=== PATIENT | female | born 1985 | race Caucasian/White ===

== ENCOUNTER 2020-09-09 10:50 | Outpatient (REF) | payer MEDICARE, MEDICAID, SELFPAY ==
--- NOTE | 2020-09-09 | US_ITS ---
EXAMINATION: US VENOUS ULTRASOUND WITH DOPPLER LOWER EXTREMITY, LEFT CLINICAL INFORMATION: Followup positive DVT. COMPARISON: Ultrasound venous Doppler left lower leg 04/24/2020 TECHNIQUE: Ultrasound of the deep veins is performed from the hip to the calf with compression sonography and color and pulse Doppler assessment. Spectral analysis with color-flow imaging is performed. FINDINGS: There is a partial clot seen in the left common femoral and popliteal vein with no compression consistent with a chronic clot. Also visualized is clot seen in the left proximal and mid superficial femoral vein with no compression. The greater saphenous vein has normal flow. The left posterior tibial and peroneal veins appear patent. There is no Johnson's cyst seen. IMPRESSION: Still positive left lower leg for DVT. There is a chronic partial clot seen in the left common femoral and popliteal vein with no compression. There is a clot seen in the proximal and mid superficial femoral vein. The greater saphenous, peroneal and posterior tibial veins are patent.
== END 2020-09-09 10:51 | disposition home or self-care (01) ==
LOC: HO.US 10:50
PROVIDERS: Visit Provider Internal Medicine Medical Oncology
DX: I82.402 Acute embolism and thrombosis of unspecified deep veins of left lower extremity (principal)
CPT/HCPCS: 93971

== ENCOUNTER → 2020-09-12 13:50 | Outpatient (BNV) | payer MEDICARE, MEDICAID, SELFPAY | PROVIDERS: PCP Internal Medicine; Visit Provider Internal Medicine Medical Oncology | DX: I82.402 Acute embolism and thrombosis of unspecified deep veins of left lower extremity (principal) | CPT/HCPCS: 99212; 99213; 99214 ==

== ENCOUNTER 2020-12-09 14:21 | Outpatient (REF) | payer MEDICARE, MEDICAID, SELFPAY ==
--- NOTE | 2020-12-09 14:27 | US_ITS ---
EXAMINATION: US VENOUS ULTRASOUND WITH DOPPLER LOWER EXTREMITY, LEFT CLINICAL INFORMATION: History DVT. Follow-up. COMPARISON: Left leg Doppler ultrasound exam 09/09/2020, 04/24/2020 TECHNIQUE: Ultrasound of the deep veins is performed from the hip to the calf with compression sonography and color and pulse Doppler assessment. Spectral analysis with color-flow imaging is performed. FINDINGS: There is chronic deep vein thrombosis. Partially occlusive thrombus remains in left common femoral vein and distal femoral vein and popliteal vein. There is occlusive thrombus in the proximal femoral and mid femoral vein. In the calf there is normal vascular flow present of the peritoneal, posterior tibial veins. The greater saphenous vein is patent. Compared to the prior study of 09/09/2020 there has not been substantial change. US/US venous duplex LE LT IMPRESSION: No change of the chronic thrombus in the left lower extremity when compared to prior study of 09/09/2020. Partial thrombus remains in the left common femoral vein, distal femoral vein and popliteal vein. Occlusive thrombus in the proximal femoral and mid femoral vein.
== END 2020-12-09 14:22 | disposition home or self-care (01) ==
LOC: HO.HMGCX 14:21
PROVIDERS: PCP Internal Medicine; Visit Provider Internal Medicine Medical Oncology
DX: Z86.718 Personal history of other venous thrombosis and embolism (principal); Z79.01 Long term (current) use of anticoagulants
CPT/HCPCS: 93971

== ENCOUNTER 2021-03-20 14:23 | Outpatient (REF) | payer MEDICARE, MEDICAID, SELFPAY ==
--- NOTE | ~2021-03-20 | US_ITS ---
EXAMINATION: US VENOUS ULTRASOUND WITH DOPPLER LOWER EXTREMITY, LEFT CLINICAL INFORMATION: Follow-up left lower extremity DVT. COMPARISON: Left lower extremity ultrasound 12/09/2020 TECHNIQUE: Ultrasound of the deep veins is performed from the hip to the calf with compression sonography and color and pulse Doppler assessment. Spectral analysis with color-flow imaging is performed. FINDINGS: There is chronic deep vein thrombosis. Partially occlusive thrombus in the common femoral vein, distal femoral vein, popliteal vein. Occlusive thrombus in the proximal and mid femoral vein. There is a normal vascular flow in the visualized posterior tibial and peroneal veins. Findings overall appear similar as compared to the prior study of 12/09/2020. US/US venous duplex LE LT IMPRESSION: No appreciable change in the the known chronic thrombosis in the left lower extremity. Partially occlusive thrombus in the common femoral vein, femoral vein and popliteal vein. Occlusive thrombosis in the proximal and mid portion of the femoral vein.
== END 2021-03-20 14:24 | disposition home or self-care (01) ==
LOC: HO.US 14:23
PROVIDERS: PCP Internal Medicine; Visit Provider Internal Medicine Medical Oncology
DX: I82.412 Acute embolism and thrombosis of left femoral vein (principal); I82.432 Acute embolism and thrombosis of left popliteal vein
CPT/HCPCS: 93971

== ENCOUNTER 2021-03-20 18:35 | Emergency (ER) | payer MEDICARE, MEDICAID, SELFPAY ==
[2021-03-20 18:43] VITALS: BP 107/70; PULSE 77; RESP 16; TEMP 36.7; O2SAT 100
--- NOTE | 2021-03-20 19:11 | ED_ITS ---
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 had blood drawn and after that patient was walking and felt lightheaded felt like passing out sat down and felt better patient has similar episodes in the past , patient denies any chest pain or palpitation feeling better now back to normal Related Data Home Medications Medication Instructions Recorded Confirmed apixaban [Eliquis] 5 mg PO BID 09/12/20 09/12/20 multivitamin 1 tab PO DAILY 09/12/20 09/12/20 docusate sodium 100 mg PO DAILY 12/16/20 12/16/20 Previous Rx's Medication Instructions Recorded melatonin 3 mg tablet 3 mg PO BEDTIME PRN #90 tab 02/16/21 Allergies Allergy/AdvReac Type Severity Reaction Status Date / Time cefoxitin [CEFOXITIN] Allergy Unknown RASH, ITCHY Verified 12/09/20 14:38 Review of Systems Review of Systems: Constitutional : No Weight loss, No Fever, No Chills ENT/Mouth : No sore throat, No Rhinorrhea Eyes: No Eye Pain, No Swelling Cardiovascular : No Chest Pain, no palpitations Respiratory : No Cough, No Sputum, no shortness of breath Gastrointestinal : no Nausea, No Vomiting, No Diarrhea, No abdominal Pain, no black stools Genitourinary : No Dysuria, No Urinary Frequency Musculoskeletal : No joint pain, No Myalgias, No Joint Swelling Skin : No Skin Lesions, No rash Neuro : + Weakness, No Numbness, + Dizziness, No Headache Psych : No Anxiety/Panic, No Depression Heme/Lymph: No Bruising, No Lymphadenopathy Endocrine : No Polyuria, No Polydipsia All other systems reviewed and are negative [facility] Past Medical History Medical History GERD (gastroesophageal reflux disease) Left leg DVT Legally blind Surgical History History of back surgery Hx of ileostomy S/P eye surgery Family History Family History Father Cancer of prostate Mother GERD (gastroesophageal reflux disease) Maternal Grandmother Colon cancer Maternal Grandfather History of heart attack Maternal Uncle History of heart attack Social History Social History Alcohol intake: never Smoking Status: Never smoker Smoked in Last 30 Days: No Use of substances other than those prescribed or required for medical reasons: No Any prior treatment program specific to substance use: No Advance Directives: No Advance Directives Information Provided: Yes Physical Exam Vital Signs: Vital Signs: Last Vital Signs Temp 98.0 F 03/20/21 18:43 Pulse 77 03/20/21 18:43 Resp 16 03/20/21 18:43 BP 107/70 03/20/21 18:43 Pulse Ox 100 03/20/21 18:43 Body Mass Index 20.0 Appearance: Alert. Oriented X3. No acute distress. Eyes: Legally blind No Nystagmus ENT: Pharynx normal. Oral Mucosa moist Neck: Normal inspection. Neck supple. CVS: Normal heart rate and rhythm. Pulses normal. Respiratory: No respiratory distress. Equal air entry bilateral, no wheezing /rales/rhonchi Abdomen: Soft and nontender. Bowel sounds are present, no mass palpable, no CVA tenderness Skin: Skin warm and dry. Normal skin color. Normal skin turgor. Extremities: No lower extremity edema. No calf tenderness Neuro: Oriented X 3. No motor deficit. No sensory deficit.No cerebellar signs , cranial nerves II-XII intact Medical Decision Making MDM Narrative Medical decision making narrative: Patient had labs done earlier in the morning looks stable on Eliquis for DVT in left leg vitals are stable patient had food in the ER and feeling much better now ambulatory without any significant distress , symptoms likely from vasovagal near syncope which she had before, will discharge patient home Discharge Plan Discharge Clinical Impression: Vasovagal near syncope Patient Disposition: Home, Self-Care Instructions: Near Syncope (ED) Additional Instructions: Drink plenty of fluids rest and eat well Follow-up with your PCP if any concerns Prescriptions: No Action melatonin 3 mg tablet 3 mg PO BEDTIME PRN (Reason: for insomnia) Qty: 90 RF: 0 multivitamin Tablet 1 tab PO DAILY RF: 0 Eliquis 5 mg Tablet 5 mg PO BID RF: 0 docusate sodium 100 mg capsule 100 mg PO DAILY RF: 0 Discharge Date/Time: 03/20/21 19:21
== END 2021-03-20 19:21 | disposition home or self-care (01) ==
PROVIDERS: Emergency Provider Internal Medicine; PCP Internal Medicine
DX: R55 Syncope and collapse (principal); Z86.718 Personal history of other venous thrombosis and embolism; Z79.01 Long term (current) use of anticoagulants
CPT/HCPCS: 99282; 99284

== ENCOUNTER 2021-06-17 16:16 | Outpatient (REF) | payer MEDICARE, MEDICAID, SELFPAY ==
--- NOTE | ~2021-06-17 | US_ITS ---
EXAMINATION: US VENOUS ULTRASOUND WITH DOPPLER LOWER EXTREMITY, LEFT CLINICAL INFORMATION: Follow up on left lower extremity DVT. COMPARISON: Ultrasound venous duplex study 03/20/2021). TECHNIQUE: Ultrasound of the deep veins is performed from the hip to the calf with compression sonography and color and pulse Doppler assessment. Spectral analysis with color-flow imaging is performed. FINDINGS: There is normal venous compression and respiratory variation and augmented flow. The visualized proximal common femoral vein and trifurcation region shows no evidence of deep venous thrombosis. There is a thrombosis visualized in the mid and distal superficial femoral vein, and popliteal vein suggestive of thrombosis. The calf veins including the posterior tibial, peroneal veins are patent. There is no significant popliteal fossa cyst. If the patient's symptoms persist, follow-up ultrasound in 5 days 7 days might be of value to exclude proximal propagation from a nonvisualized calf vein. US/US venous duplex LE IMPRESSION: Acute DVT mid and distal superficial femoral vein and popliteal vein. This was visualized on the previous exam 03/20/2021.
== END 2021-06-17 16:17 | disposition home or self-care (01) ==
LOC: HO.US 16:16
PROVIDERS: Visit Provider Internal Medicine Medical Oncology
DX: I82.402 Acute embolism and thrombosis of unspecified deep veins of left lower extremity (principal)
CPT/HCPCS: 93971

== ENCOUNTER 2021-10-05 13:29 | Outpatient (REF) | payer MEDICARE, MEDICAID, SELFPAY ==
--- NOTE | ~2021-10-05 | US_ITS ---
EXAMINATION: US VENOUS ULTRASOUND WITH DOPPLER LOWER EXTREMITY, LEFT CLINICAL INFORMATION: Follow-up DVT COMPARISON: Previous exam most recent May 2021 TECHNIQUE: Ultrasound of the deep veins is performed from the hip to the calf with compression sonography and color and pulse Doppler assessment. Spectral analysis with color-flow imaging is performed. FINDINGS: There is linear echogenic material and diminished compression of the left common femoral vein suggestive of chronic changes from DVT. There is occlusion of the left superficial femoral vein in the proximal thigh. This is filled with echogenic material, appears small and has no flow. The left superficial femoral vein in the mid thigh is small in caliber but patent. The left superficial femoral vein in the distal thigh demonstrates linear echogenic density and some hypoechoic material suggestive of acute and chronic thrombus. The popliteal, peroneal and posterior tibial veins are patent. The contralateral right common femoral vein is patent. US/US venous duplex LE LT IMPRESSION: There is interval improvement in DVT of the left leg compared to May 2021 exam. There is occlusive old-appearing thrombus in the left superficial femoral vein in the proximal thigh, small caliber but patent superficial femoral vein in the mid thigh and mixed acute and chronic-appearing thrombus in the superficial femoral vein in the distal thigh. The popliteal vein is patent.
== END 2021-10-05 13:30 | disposition home or self-care (01) ==
LOC: HO.HMGCX 13:29
PROVIDERS: PCP Internal Medicine; Visit Provider Internal Medicine Medical Oncology
DX: I82.402 Acute embolism and thrombosis of unspecified deep veins of left lower extremity (principal)
CPT/HCPCS: 93971

== ENCOUNTER 2021-10-07 15:12 | Outpatient (REF) | payer MEDICARE, MEDICAID, SELFPAY ==
[2021-10-07 15:41] LABS: MANUAL DIFF FLAG NO
[2021-10-07 15:46] LABS: Basophils Percent Auto 0.2 % (0-2); Eosinophils Percent Auto 0.5 % (0-4); Hematocrit 38.1 % (37.0-47.0); Hemoglobin 11.5 g/dl (12.0-16.0); Imm Gran Abs Auto 0.02 X10*3/uL (0.00-0.03); Imm Gran Pct Auto 0.3 % (0.0-0.4); Lymphocytes Absolute Auto 1.6 X10*3/uL (1.2-4.9); Lymphocytes Percent Auto 24.8 % (20-40); Mean Corpuscular HGB Conc 30.2 g/dl (31.0-35.0); Mean Corpuscular Hemoglobin 25.4 pg (27.0-33.0); Mean Corpuscular Volume 84.1 fL (80.0-98.0); Mean Platelet Volume 9.7 fL (9.4-12.3); Monocytes Absolute Auto 0.6 X10*3/uL (0.1-1.2); Monocytes Percent Auto 9.7 % (2-11); Neutrophils Absolute Auto 4.2 x10*3/uL (2.0-8.3); Neutrophils Percent Auto 64.5 % (45-73); Platelet Count 370 X10*3/uL (160-400); Red Blood Count 4.53 X10*6/uL (4.20-5.50); Red Cell Distribution Width 15.6 % (11.0-16.0); White Blood Count 6.6 X10*3/uL (4.8-10.8)
[2021-10-07 16:06] LABS: Alanine Aminotransferase 11 U/L (0-31); Albumin Level 4.5 g/dL (3.5-5.0); Alkaline Phosphatase 70 U/L (39-117); Anion Gap 13 (12-20); Aspartate Amino Transferase 15 U/L (5-31); Bilirubin Total 0.5 mg/dL (0.0-1.0); Blood Urea Nitrogen 11 mg/dL (9-16); Calcium 9.2 mg/dL (8.4-10.2); Carbon Dioxide 24 mmol/L (22-29); Chloride 100 mmol/L (96-108); Estimated Glomerular Filt Rate > 60; Glucose Random 90 mg/dL (60-115); Potassium 3.8 mmol/L (3.3-5.1); Sodium 133 mmol/L (135-145); Total Protein 7.5 g/dL (6.5-8.0)
[2021-10-07 16:27] LABS: Ferritin 9 ng/mL (10-122)
== END 2021-10-07 15:13 | disposition home or self-care (01) ==
LOC: HO.LAB 15:12
PROVIDERS: PCP Internal Medicine; Visit Provider Internal Medicine Medical Oncology
DX: I82.402 Acute embolism and thrombosis of unspecified deep veins of left lower extremity (principal)
CPT/HCPCS: 36415; 80053; 82728; 85025

== ENCOUNTER 2022-03-30 15:21 | Outpatient (REF) | payer MEDICARE, MEDICAID, SELFPAY ==
--- NOTE | ~2022-03-30 | US_ITS ---
EXAMINATION: US VENOUS ULTRASOUND WITH DOPPLER LOWER EXTREMITY, LEFT CLINICAL INFORMATION: Follow up left leg deep venous thrombosis. COMPARISON: 10/05/2021 and studies dating back to 04/24/2020. TECHNIQUE: Ultrasound of the deep veins is performed from the hip to the calf with compression sonography and color and pulse Doppler assessment. Spectral analysis with color-flow imaging is performed. FINDINGS: There is a similar appearance to the deep venous system of the left lower extremity compared to previous studies. There is lack of compressibility and color of Doppler flow seen within the proximal superficial femoral vein. Within the left common femoral vein and mid superficial femoral vein there is some color flow and Doppler flow present however the vessels are noncompressible with the appearance of chronic DVT with some recanalization. The greater saphenous vein, profunda femoral vein, popliteal vein, peroneal vein, and posterior tibial veins are patent with normal compressibility. There is no significant popliteal fossa cyst. No popliteal artery aneurysm. US/US venous duplex LE LT IMPRESSION: No significant change in findings of chronic deep venous thrombosis of the left lower extremity as described. No definite new region of acute thrombosis.
== END 2022-03-30 15:22 | disposition home or self-care (01) ==
LOC: HO.HMGCX 15:21
PROVIDERS: PCP Internal Medicine; Visit Provider Internal Medicine Medical Oncology
DX: I82.402 Acute embolism and thrombosis of unspecified deep veins of left lower extremity (principal)
CPT/HCPCS: 93971

== ENCOUNTER 2022-10-26 13:46 | Outpatient (REF) | payer MEDICARE, MEDICAID, SELFPAY ==
--- NOTE | ~2022-10-26 | US_ITS ---
EXAMINATION: US VENOUS ULTRASOUND WITH DOPPLER LOWER EXTREMITY, LEFT CLINICAL INFORMATION: Follow-up DVT COMPARISON: Ultrasound 03/30/2022 TECHNIQUE: Ultrasound of the deep veins is performed from the hip to the calf with compression sonography and color and pulse Doppler assessment. Spectral analysis with color-flow imaging is performed. FINDINGS: There is normal venous compression and respiratory variation and augmented in profunda femoral vein, popliteal vein, and the trifurcation region shows no evidence of deep venous thrombosis. There is a chronic clot in the left common femoral and proximal and mid superficial femoral veins similar previous study. There is no significant popliteal fossa cyst. If the patient's symptoms persist, followup ultrasound in 5 days 7 days might be of value to exclude proximal propagation from a non-visualized calf vein. US/US venous duplex LE LT IMPRESSION: DVT left lower extremity involving common femoral, proximal and mid superficial femoral veins. The findings are similar to previous study. Results were discussed with Dr. Schuster by phone at 3:15 PM
== END 2022-10-26 13:47 | disposition home or self-care (01) ==
LOC: HO.US 13:46
PROVIDERS: Visit Provider Internal Medicine Medical Oncology
DX: I82.402 Acute embolism and thrombosis of unspecified deep veins of left lower extremity (principal)
CPT/HCPCS: 93971

== ENCOUNTER 2023-11-24 15:29 | Outpatient (REF) | payer MEDICARE, MEDICAID, SELFPAY | END 2023-11-24 15:30 | disposition home or self-care (01) | LOC: HO.HMGCX 15:29 | PROVIDERS: PCP Internal Medicine; Visit Provider Internal Medicine Medical Oncology | DX: I82.402 Acute embolism and thrombosis of unspecified deep veins of left lower extremity (principal) | CPT/HCPCS: 93971 ==

== ENCOUNTER 2025-01-02 15:18 | Outpatient (REF) | payer MEDICARE, MEDICAID, SELFPAY ==
--- NOTE | ~2025-01-02 | US_ITS ---
EXAMINATION: US TRIPLEX LOWER EXTREMITY, LEFT CLINICAL INFORMATION: Prior deep venous thrombosis left lower extremity. Follow-up exam. COMPARISON: November 24, 2023. TECHNIQUE: Color-flow triplex imaging with spectral analysis and compression Doppler were performed on the left lower extremity. FINDINGS: Current examination demonstrates nonocclusive 5 thrombosis with partial compressibility and augmentation throughout the interrogated vessels from the left common femoral vein to the distal left femoral vein. There is phasic flow and augmentation and normal compressibility in the left popliteal vein, posterior tibialis and peroneal veins and the right common femoral vein. There is no Johnson's cyst. US/US venous duplex LE IMPRESSION: Chronic nonocclusive thrombus, left common femoral vein to the distal left femoral vein. Stable. Electronically signed by: Nito Shah MD 01/02/2025 03:[address]
== END 2025-01-02 15:19 | disposition home or self-care (01) ==
LOC: HO.HMGCX 15:18
PROVIDERS: PCP Family Medicine; Visit Provider Internal Medicine Medical Oncology
DX: I82.402 Acute embolism and thrombosis of unspecified deep veins of left lower extremity (principal)
CPT/HCPCS: 93971

== ENCOUNTER → 2025-01-02 15:24 | Outpatient (BNV) | payer MEDICARE, MEDICAID, SELFPAY | PROVIDERS: PCP Family Medicine; Visit Provider Radiology Diagnostic Radiology | DX: I82.402 Acute embolism and thrombosis of unspecified deep veins of left lower extremity (principal) | CPT/HCPCS: 93971 ==

== ENCOUNTER 2025-07-01 17:51 | Emergency (ER) | payer MEDICARE, MEDICAID, SELFPAY ==
--- NOTE | ~2025-07-01 | US_ITS ---
CLINICAL HISTORY: chronic DVTs, new LLE swelling Venous duplex ultrasound left lower extremity Comparison: US/NE/SR - US LOWER EXTREMITY VEINS LIMITED FOLLOW UP LEFT - 01/02/25 15:33 EST Findings: Chronic nonocclusive thrombus in the left common femoral vein, similar to prior. The rest of the visualized deep veins are fully compressible with normal Doppler color flow and spectral tracings. No popliteal cyst. IMPRESSION: Chronic nonocclusive thrombus in the left common femoral vein, similar to prior. This document has been electronically signed by: Aldo Melgar MD on 07/01/2025 19:27:50
--- NOTE | 2025-07-01 18:33 | ED.GENADULT ---
HPI - General Adult General Chief complaint: General Medical Stated complaint: bld clot& swelling left leg, dizziness Time Seen by Provider: 07/02/25 00:07 Related Data Home Medications ?Medication ?Instructions ?Recorded ?Confirmed multivitamin 1 tab PO DAILY 09/12/20 10/24/23 simethicone 125 mg chewable tablet 80 mg PO DAILY PRN Dyspepsia 07/07/21 10/24/23 (Gas Relief (simethicone)) polyethylene glycol 3350 17 17 g PO DAILY 04/22/22 10/24/23 gram/dose oral powder (Miralax) Previous Rx's ?Medication ?Instructions ?Recorded docusate sodium 100 mg capsule 100 mg PO DAILY PRN for 11/03/22 constipation #90 caps melatonin 3 mg tablet 3 mg PO BEDTIME PRN for insomnia 11/03/22 #90 tabs apixaban 2.5 mg tablet (Eliquis) 2.5 mg PO BID #60 tabs 02/25/25 Allergies Allergy/AdvReac Type Severity Reaction Status Date / Time cefoxitin (CEFOXITIN) Allergy Unknown RASH, ITCHY Verified 07/01/25 18:38 [facility] Past Medical History Medical History (Updated 07/02/25 @ 00:11 by Hebert Silverman MD) Current use of senior living anticoagulation Anemia GERD (gastroesophageal reflux disease) Legally blind Left leg DVT Surgical History History of back surgery Hx of ileostomy S/P eye surgery Family History Family History Father Cancer of prostate Mother GERD (gastroesophageal reflux disease) Maternal Grandmother Colon cancer Maternal Grandfather History of heart attack Maternal Uncle History of heart attack Social History Social History Household Members: Caregiver and Friend(s) Housing: Other Housing Other:: shared living house Are you a primary childcare center administrator to a significant other at home: No Do you presently have visiting nurse or other home services: No Alcohol intake: never Patient Tobacco Use Status: Never used Tobacco e-Cigarette/Vaping Use: Never Used Advance Directives: No Advance Directives Information Provided: Yes service: No Current occupational status: disabled Physical Exam ED Vital Signs: BMI result Body Mass Index 20.5 Course Course Course Narrative: This is a rapid medical exam performed by Wili Buckley NP: Additional HPI, ROS, PE not included below will be deferred to primary provider. 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 [employer] Operator stating that patient was at school today, had a dizzy spell, then she complained of left ankle pain, was noted to have left lower leg and ankle swelling. [employer] Operator states patient currently has 3 stable blood clots to her left leg. [employer] Operator states that patient rarely complains of pain, so when she does something is typically wrong. Sees Dr. Schuster. Plan: labs, u/s Medical Decision Making Lab Data 07/01/25 19:15 07/01/25 19:15 Labs: Lab Results 07/01/25 Range/Units 19:15 WBC 7.5 (4.8-10.8) X10*3/uL RBC 4.61 (4.20-5.50) X10*6/uL Hgb 9.4 L (12.0-16.0) g/dl Hct 31.9 L (37.0-47.0) % MCV 69.2 L (80.0-98.0) fL MCH 20.4 L (27.0-33.0) pg MCHC 29.5 L (31.0-35.0) g/dl RDW 18.1 H (11.0-16.0) % Plt Count 376 (160-400) X10*3/uL MPV 9.2 L (9.4-12.3) fL Immature Gran % (Auto) 0.3 (0.0-0.4) % Neut % (Auto) 70.1 (45-73) % Lymph % (Auto) 20.6 (20-40) % Davidson % (Auto) 8.5 (2-11) % Eos % (Auto) 0.4 (0-4) % Baso % (Auto) 0.1 (0-2) % Lymph # (Auto) 1.6 (1.2-4.9) X10*3/uL Davidson # (Auto) 0.6 (0.1-1.2) X10*3/uL Eos # (Auto) 0.0 (0.0-0.4) X10*3/uL Baso # (Auto) 0.0 (0.0-0.2) X10*3/uL Abs Immat Gran (auto) 0.02 (0.00-0.03) X10*3/uL Absolute Neuts (auto) 5.3 (2.0-8.3) x10*3/uL Absolute Nucleated RBC 0.000 (0.0-0.012) X10*3/uL Nucleated RBC % (auto) 0.0 (0.0-0.2) /100WBC PT 13.3 H (10.9-12.4) SEC INR 1.2 H (0.9-1.1) Sodium 142 (135-145) mmol/L Potassium 3.9 (3.3-5.1) mmol/L Chloride 106 (96-108) mmol/L Carbon Dioxide 26 (22-29) mmol/L Anion Gap 14 (12-20) BUN 12 (9-16) mg/dL Creatinine 0.57 (0.5-1.4) mg/dL Estim Creat Clear Calc 104.7 Estimated GFR > 60 Random Glucose 88 (60-115) mg/dL Calcium 10.0 D (8.4-10.2) mg/dL Total Bilirubin 0.3 (0.0-1.0) mg/dL AST 23 (5-31) U/L ALT 17 (0-31) U/L Alkaline Phosphatase 80 (39-117) U/L Total Protein 7.9 (6.5-8.0) g/dL Albumin 4.6 (3.5-5.0) g/dL Discharge Plan Discharge Clinical Impression: Left leg DVT Patient Disposition: Home, Self-Care Instructions: Deep Vein Thrombosis (ED) Additional Instructions: You have chronic old blood clots no new blood clots were seen in the left leg Your pain in the left leg likely musculoskeletal Continue medication Eliquis Take Tylenol for pain as needed Report to the ER/PCP if worsening of the swelling or pain Prescriptions: No Action melatonin 3 mg tablet 3 mg PO BEDTIME PRN (Reason: for insomnia) Qty: 90 0RF docusate sodium 100 mg capsule 100 mg PO DAILY PRN (Reason: for constipation) Qty: 90 0RF multivitamin Tablet 1 tab PO DAILY polyethylene glycol 3350 [Miralax] 17 gram/dose Powder 17 g PO DAILY Eliquis 2.5 mg Tablet 2.5 mg PO BID Qty: 60 2RF simethicone [Gas Relief (simethicone)] 125 mg tablet,chewable 80 mg PO DAILY PRN (Reason: Dyspepsia) Interventions: ED Discharge Assessment Last Done: 07/02/25 00:12 Discharge Date/Time: 07/02/25 00:43 Print Language: Kazakh
[2025-07-01 18:34] VITALS: BP 119/90; PULSE 95; RESP 18; TEMP 37.1; O2SAT 99; BMI 20.5
[2025-07-01 19:21] LABS: MANUAL DIFF FLAG NO
[2025-07-01 19:22] LABS: Hematocrit 31.9 % (37.0-47.0); Hemoglobin 9.4 g/dl (12.0-16.0); Imm Gran Abs Auto 0.02 X10*3/uL (0.00-0.03); Imm Gran Pct Auto 0.3 % (0.0-0.4); Lymphocytes Absolute Auto 1.6 X10*3/uL (1.2-4.9); Mean Corpuscular HGB Conc 29.5 g/dl (31.0-35.0); Mean Corpuscular Hemoglobin 20.4 pg (27.0-33.0); Mean Corpuscular Volume 69.2 fL (80.0-98.0); NRBC Abs Auto 0.000 X10*3/uL (0.0-0.012); NRBC Pct Auto 0.0 /100WBC (0.0-0.2); Platelet Count 376 X10*3/uL (160-400); Red Blood Count 4.61 X10*6/uL (4.20-5.50); White Blood Count 7.5 X10*3/uL (4.8-10.8)
[2025-07-01 19:28] LABS: INTERNATIONAL NORM RATIO 1.2 (0.9-1.1); Prothrombin Time 13.3 SEC (10.9-12.4)
[2025-07-01 19:38] LABS: Alanine Aminotransferase 17 U/L (0-31); Albumin Level 4.6 g/dL (3.5-5.0); Alkaline Phosphatase 80 U/L (39-117); Anion Gap 14 (12-20); Aspartate Amino Transferase 23 U/L (5-31); Blood Urea Nitrogen 12 mg/dL (9-16); Calcium 10.0 mg/dL (8.4-10.2); Carbon Dioxide 26 mmol/L (22-29); Chloride 106 mmol/L (96-108); Creatinine Clr Calc Pharmacy 104.7; Estimated Glomerular Filt Rate > 60; Potassium 3.9 mmol/L (3.3-5.1); Sodium 142 mmol/L (135-145); Total Protein 7.9 g/dL (6.5-8.0)
[2025-07-01 22:49] VITALS: BP 114/82; PULSE 84; RESP 16; TEMP 36.6; O2SAT 100
[2025-07-02 00:12] VITALS: BP 114/82; PULSE 84; RESP 16; TEMP 36.6; O2SAT 100
== END 2025-07-02 00:43 | disposition home or self-care (01) ==
PROVIDERS: Registered Nurse Emergency; Emergency Provider Internal Medicine
DX: M79.662 Pain in left lower leg (principal); I82.492 Acute embolism and thrombosis of other specified deep vein of left lower extremity; D64.9 Anemia, unspecified; M79.89 Other specified soft tissue disorders; Z86.718 Personal history of other venous thrombosis and embolism; Z79.01 Long term (current) use of anticoagulants; Z79.899 Other long term (current) drug therapy
CPT/HCPCS: 36415; 80053; 85025; 85610; 93971; 99283; 99284

== ENCOUNTER → 2025-07-01 18:37 | Outpatient (BNV) | payer MEDICARE, MEDICAID, SELFPAY | PROVIDERS: Visit Provider Radiology Diagnostic Radiology | DX: R22.42 Localized swelling, mass and lump, left lower limb (principal) | CPT/HCPCS: 93971 ==